=== PATIENT | female | born 1990 | race Caucasian/White ===

== ENCOUNTER 2024-03-25 15:44 | Emergency (ER) | payer OTHER ==
--- NOTE | 2024-03-25 16:50 | ED ---
General Adult HPI - General Stated complaint: stiff neck Time Seen by Provider: 03/25/24 16:01 Source: patient, RN notes reviewed - History of Present Illness Initial comments: Quick [id number] female presents emergency room chief complaint of diarrhea, fevers, neck pain over the past few days. Patient states that she was evaluated at [facility] on Saturday and was diagnosed with hemorrhoids, and viral testing was negative. Patient denies productive cough, dyspnea, photophobia, rashes, recent travel. - Related Data Allergies Allergy/AdvReac Type Severity Reaction Status Date / Time Penicillins Allergy Rash/Hives Verified 03/25/24 17:55 Review of Systems ROS Statement: Those systems with pertinent positive or pertinent negative responses have been documented in the HPI. ROS Other: All systems not noted in ROS Statement are negative. General Exam - General Exam Comments Initial Comments: Visual Physical Exam Vital signs reviewed General: Well-appearing, nontoxic, no acute distress. Head: Normocephalic, atraumatic Eyes: PERRLA, EOMI ENT: Airway patent Chest: Nonlabored breathing Skin: No visual rash, normal skin tone Neuro: Alert and oriented 3 Musculoskeletal: No gross abnormalities Course Vital Signs 03/25/24 17:48 Temperature 98.7 F Pulse Rate 106 H Respiratory 18 Rate Blood Pressure 119/77 O2 Sat by Pulse 98 Oximetry Medical Decision Making - Medical Decision Making I completed the quick note portion of this chart signed Sultana Borjas PA-C unable to complete full MDM due to patient leaving against medical advice. - Lab Data Result diagrams: 03/25/24 17:56 03/25/24 17:56 Lab Results 03/25/24 03/25/24 03/25/24 Range/Units 17:56 17:56 17:56 WBC 3.7 L (3.8-10.6) k/uL RBC 5.19 (3.80-5.40) m/uL Hgb 13.7 (11.4-16.0) gm/dL Hct 41.0 (34.0-46.0) % MCV 79.1 L (80.0-100.0) fL MCH 26.4 (25.0-35.0) pg MCHC 33.3 (31.0-37.0) g/dL RDW 14.5 (11.5-15.5) % Plt Count 228 (150-450) k/uL MPV 7.9 Neutrophils % 50 % Lymphocytes % 30 % Monocytes % 9 % Eosinophils % 5 % Basophils % 1 % Neutrophils # 1.8 (1.3-7.7) k/uL Lymphocytes # 1.1 (1.0-4.8) k/uL Monocytes # 0.3 (0-1.0) k/uL Eosinophils # 0.2 (0-0.7) k/uL Basophils # 0.0 (0-0.2) k/uL Sodium 140 (137-145) mmol/L Potassium 4.1 (3.5-5.1) mmol/L Chloride 109 H (98-107) mmol/L Carbon Dioxide 27 (22-30) mmol/L Anion Gap 4 mmol/L BUN 14 (7-17) mg/dL Creatinine 0.61 (0.52-1.04) mg/dL Est GFR (CKD-EPI)AfAm >90 (>60 ml/min/1.73 sqM) Est GFR (CKD-EPI)NonAf >90 (>60 ml/min/1.73 sqM) Glucose 96 (74-99) mg/dL Plasma Lactic Acid Rene 1.0 (0.7-2.0) mmol/L Calcium 8.5 (8.4-10.2) mg/dL Total Bilirubin 0.3 (0.2-1.3) mg/dL AST 36 (14-36) U/L ALT 27 (4-34) U/L Alkaline Phosphatase 102 (38-126) U/L Total Protein 6.7 (6.3-8.2) g/dL Albumin 3.8 (3.5-5.0) g/dL Disposition Clinical Impression: Left against medical advice Disposition: LEFT AGAINST MEDICAL ADVICE Condition: Undetermined Is patient prescribed a controlled substance at d/c from ED?: No Referrals: None,Stated [Primary Care Provider] - 1-2 days
[2024-03-25 17:54] VITALS: BP 119/77; PULSE 106; RESP 18; TEMP 98.7
[2024-03-25 18:35] LABS: HGB 13.7 gm/dL (11.4-16.0); MCH 26.4 pg (25.0-35.0); MCHC 33.3 g/dL (31.0-37.0); MCV 79.1 fL (80.0-100.0); Mean Platelet Volume 7.9; Platelet Count 228 k/uL (150-450); RBC 5.19 m/uL (3.80-5.40); RDW 14.5 % (11.5-15.5); WBC 3.7 k/uL (3.8-10.6)
[2024-03-25 18:36] LABS: Basophils % (A) 1 %; Eosinophils % (A) 5 %; Lymphocytes # (A) 1.1 k/uL (1.0-4.8); Lymphocytes % (A) 30 %; Monocytes # (A) 0.3 k/uL (0-1.0); Monocytes % (A) 9 %; Neutrophils # (A) 1.8 k/uL (1.3-7.7); Neutrophils % (A) 50 %
[2024-03-25 18:37] LABS: Eosinophils # (A) 0.2 k/uL (0-0.7)
[2024-03-25 18:42] LABS: ALT 27 U/L (4-34); AST 36 U/L (14-36); African American GFR (CKD) >90 (>60 ml/min/1.73 sqM); Albumin 3.8 g/dL (3.5-5.0); Alkaline Phosphatase 102 U/L (38-126); Anion Gap 4 mmol/L; Blood Urea Nitrogen 14 mg/dL (7-17); Calcium 8.5 mg/dL (8.4-10.2); Carbon Dioxide 27 mmol/L (22-30); Chloride 109 mmol/L (98-107); Glucose 96 mg/dL (74-99); Non-African American GFR(CKD) >90 (>60 ml/min/1.73 sqM); Potassium 4.1 mmol/L (3.5-5.1); Sodium 140 mmol/L (137-145); Total Bilirubin 0.3 mg/dL (0.2-1.3); Total Protein 6.7 g/dL (6.3-8.2)
[2024-03-25] MEDS ORDERED: SODIUM CHLORIDE 0.9% 1,000 ML IV STA (19:29)
[2024-03-25] MEDS ORDERED: KETOROLAC 15 MG/ML 1 ML VIAL IVP STA (19:29)
[2024-03-25] MEDS ORDERED: ACETAMINOPHEN IV (For NPO) 1,000 MG in EMPTY BAG 1 BAG IVPB STA (19:29)
[2024-03-25] MEDS ORDERED: SODIUM CHLORIDE 0.9% 500 ML 500 ML IV STA (19:29)
== END 2024-03-25 20:02 | disposition left against medical advice (07) ==
LOC: EC 15:44
DX: M54.2 Cervicalgia (principal); Z88.0 Allergy status to penicillin; Z53.29 Procedure and treatment not carried out because of patient's decision for other reasons
CPT/HCPCS: 36415; 80053; 83605; 85025; 99283